=== PATIENT | male | born 1955 | race African-American/Black ===

== ENCOUNTER 2019-03-02 11:07 | Emergency (ER) | payer BC, OTHER ==
[~2019-03-02] VITALS: Ht 177.8 cm; Wt 111.2 kg
[~2019-03-02 11:07] MED LIST: GLYB5TAB3 PO; IBUP-1542 PO; LOSA50TA14 PO
[2019-03-02 11:12] VITALS: BP 158/72; PULSE 98; RESP 18; Ht 177.8 cm; Wt 111.2 kg
[2019-03-02] MEDS ORDERED: IBUPROFEN 600 MG TAB PO ONE (12:00)
[2019-03-02] MEDS ORDERED: DIPHTH/TET/ACEL PERTUSS (ADULT) 0.5 ML VIAL IM* ONE (12:00)
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
== END 2019-03-02 13:35 | disposition home or self-care (01) ==
LOC: FTE 11:07
DX: S50.02XA Contusion of left elbow, initial encounter (principal); S63.501A Unspecified sprain of right wrist, initial encounter; I10 Essential (primary) hypertension; E11.9 Type 2 diabetes mellitus without complications; V11.4XXA Pedal cycle driver injured in collision with other pedal cycle in traffic accident, initial encounter; Z79.84 Long term (current) use of oral hypoglycemic drugs
CPT/HCPCS: 70450; 90471; 90715